=== PATIENT | female | born 1960 | race Caucasian/White ===

== ENCOUNTER 2016-06-24 23:11 | Emergency (ER) | payer OTHER ==
[~2016-06-24 23:11] MED LIST: MAXZIDE; MAXZIDE-25 MG1 EACH PO; MAXZIDE-25 MG1 UDTAB
== END 2016-06-25 00:03 ==
LOC: EDMED 23:11
DX: S91.331A Puncture wound without foreign body, right foot, initial encounter (principal); I10 Essential (primary) hypertension; Z23 Encounter for immunization; Z79.899 Other long term (current) drug therapy; W45.0XXA Nail entering through skin, initial encounter; Y92.019 Unspecified place in single-family (private) house as the place of occurrence of the external cause